=== PATIENT | male | born 1990 | race American Indian/Alaskan Native ===

== ENCOUNTER 2019-10-12 14:15 | Emergency (ER) | payer SELFPAY ==
--- NOTE | 2019-10-12 15:35 | Event Note ---
ED Screening Note Date of service: 10/12/19 Time: 15:27 ED Screening Note: 29 y o male presents disoriented and \auditory hallucination This initial assessment/diagnostic orders/clinical plan/treatment(s) is/are subject to change based on patients health status, clinical progression and re-assessment by fellow clinical providers in the ED. Further treatment and workup at subsequent clinical providers discretion. Patient/guardian urged not to elope from the ED as their condition may be serious if not clinically assessed and managed. Initial orders include: labs.ua. uds
[2019-10-12 15:53] VITALS: BP 155/77
[2019-10-12 16:20] LABS: Basophils % (Auto) 0.4 % (0.0-1.8); Eosinophils % (Auto) 0.1 % (0.0-4.3); Hematocrit 42.6 % (35.5-45.6); Lymphocytes % (Auto) 33.1 % (13.4-35.0); Mean Corpuscular HGB Conc 33 % (32-34); Mean Corpuscular Volume 87 fl (84-94); Monocytes # (Auto) 0.4 K/mm3 (0.0-0.8); Monocytes % (Auto) 7.5 % (0.0-7.3); Platelet Count 200 K/mm3 (140-440); Red Blood Count 4.89 M/mm3 (3.65-5.03); Red Cell Distribution Width 14.2 % (13.2-15.2)
[2019-10-12 16:27] LABS: BUN/Creatinine Ratio 6; Blood Urea Nitrogen 7 mg/dL (9-20); Calcium 9.5 mg/dL (8.4-10.2); Hemolysis Index 6
--- NOTE | 2019-10-12 16:51 | Emergency Department Report ---
ED General Adult HPI - General Chief complaint: Psych Stated complaint: DEPRESSED Time Seen by Provider: 10/12/19 16:12 Source: patient, RN notes reviewed Mode of arrival: Ambulatory Limitations: No Limitations - History of Present Illness Initial comments: This is a 29-year-old gentleman. This patient is not known to this provider previously. Patient presents to the ER with a complaint of anxiety, difficulty sleeping, and occasionally seeing letters which are not there. He denies physical pain. He is not homicidal or suicidal. He does not want to hurt himself or hurt other people. He indicates that he was seen at another hospital, one of the [place] facilities, he believes [facility], was given a medication for anxiety, although he cannot recall the name of the medication. Symptoms are intermittent, painless, do not radiate anywhere, I do not have exacerbating or relieving factors as far as the patient is aware. He makes no complaint of intentional overdose. -: Gradual Improves with: none Worsens with: none - Related Data Allergies Allergy/AdvReac Type Severity Reaction Status Date / Time No Known Allergies Allergy Verified 10/12/19 14:17 ED Review of Systems ROS: Stated complaint: DEPRESSED Other details as noted in HPI Constitutional: see HPI Eyes: as per HPI ENT: as per HPI Respiratory: see HPI Cardiovascular: as per HPI Endocrine: see HPI Gastrointestinal: as per HPI Genitourinary: as per HPI Musculoskeletal: as per HPI Skin: as per HPI Neurological: as per HPI Psychiatric: as per HPI Hematological/Lymphatic: as per HPI ED Past Medical Hx - Past Medical History Previous Medical History?: No - Surgical History Past Surgical History?: No - Social History Smoking Status: Current Every Day Smoker Substance Use Type: None ED Physical Exam - General Limitations: No Limitations General appearance: alert, in no apparent distress - Head Head exam: Present: atraumatic, normocephalic - Eye Eye exam: Present: normal appearance, EOMI, other (visual acuity intact to finger counting and color perception had a close distance). Absent: nystagmus - ENT ENT exam: Present: normal exam, normal orophraynx, mucous membranes moist, normal external ear exam - Neck Neck exam: Present: normal inspection, full ROM. Absent: tenderness, meningismus - Respiratory Respiratory exam: Present: normal lung sounds bilaterally. Absent: respiratory distress - Cardiovascular Cardiovascular Exam: Present: regular rate, normal rhythm, normal heart sounds. Absent: bradycardia, tachycardia, irregular rhythm, systolic murmur, diastolic murmur, rubs, gallop - GI/Abdominal GI/Abdominal exam: Present: soft. Absent: distended, tenderness, guarding, rebound, rigid - Rectal Rectal exam: Present: deferred - Extremities Exam Extremities exam: Present: normal inspection, full ROM, other (2+ pulses noted in the bilateral upper extremities. There is no long bony tenderness. The muscular compartments are soft.) - Back Exam Back exam: Present: normal inspection, full ROM. Absent: tenderness, CVA tenderness (R), CVA tenderness (L), paraspinal tenderness, vertebral tenderness - Neurological Exam Neurological exam: Present: alert, normal gait, other (there is no facial droop. The tongue is midline. The extraocular movements are intact bilaterally. ). Absent: motor sensory deficit - Psychiatric Psychiatric exam: Present: anxious. Absent: homicidal ideation, suicidal ideation - Skin Skin exam: Present: warm, dry, intact, normal color. Absent: rash ED Course Vital Signs 10/12/19 10/12/19 15:25 15:51 Temperature 98.4 F Pulse Rate 84 94 H Respiratory 18 Rate Blood Pressure 151/91 Blood Pressure 155/77 [Right] O2 Sat by Pulse 99 99 Oximetry ED Medical Decision Making - Lab Data Result diagrams: 10/12/19 15:47 10/12/19 15:47 Vital Signs 10/12/19 10/12/19 15:25 15:51 Temperature 98.4 F Pulse Rate 84 94 H Respiratory 18 Rate Blood Pressure 151/91 Blood Pressure 155/77 [Right] O2 Sat by Pulse 99 99 Oximetry Lab Results 10/12/19 10/12/19 10/12/19 Range/Units 15:47 15:47 15:47 WBC 6.0 (4.5-11.0) K/mm3 RBC 4.89 (3.65-5.03) M/mm3 Hgb 14.0 (11.8-15.2) gm/dl Hct 42.6 (35.5-45.6) % MCV 87 (84-94) fl MCH 29 (28-32) pg MCHC 33 (32-34) % RDW 14.2 (13.2-15.2) % Plt Count 200 (140-440) K/mm3 Lymph % (Auto) 33.1 (13.4-35.0) % [place] % (Auto) 7.5 H (0.0-7.3) % Eos % (Auto) 0.1 (0.0-4.3) % Baso % (Auto) 0.4 (0.0-1.8) % Lymph # 2.0 (1.2-5.4) K/mm3 [place] # 0.4 (0.0-0.8) K/mm3 Eos # 0.0 (0.0-0.4) K/mm3 Baso # 0.0 (0.0-0.1) K/mm3 Seg Neutrophils % 58.9 (40.0-70.0) % Seg Neutrophils # 3.5 (1.8-7.7) K/mm3 Sodium 136 L (137-145) mmol/L Potassium 3.7 (3.6-5.0) mmol/L Chloride 100.3 (98-107) mmol/L Carbon Dioxide 19 L (22-30) mmol/L Anion Gap 20 mmol/L BUN 7 L (9-20) mg/dL Creatinine 1.2 (0.8-1.5) mg/dL Estimated GFR > 60 ml/min BUN/Creatinine Ratio 6 % Glucose 103 H (75-100) mg/dL Calcium 9.5 (8.4-10.2) mg/dL Acetaminophen < 5.0 L (10.0-30.0) ug/mL Plasma/Serum Alcohol (0-0.07) % 10/12/19 Range/Units 15:47 WBC (4.5-11.0) K/mm3 RBC (3.65-5.03) M/mm3 Hgb (11.8-15.2) gm/dl Hct (35.5-45.6) % MCV (84-94) fl MCH (28-32) pg MCHC (32-34) % RDW (13.2-15.2) % Plt Count (140-440) K/mm3 Lymph % (Auto) (13.4-35.0) % [place] % (Auto) (0.0-7.3) % Eos % (Auto) (0.0-4.3) % Baso % (Auto) (0.0-1.8) % Lymph # (1.2-5.4) K/mm3 [place] # (0.0-0.8) K/mm3 Eos # (0.0-0.4) K/mm3 Baso # (0.0-0.1) K/mm3 Seg Neutrophils % (40.0-70.0) % Seg Neutrophils # (1.8-7.7) K/mm3 Sodium (137-145) mmol/L Potassium (3.6-5.0) mmol/L Chloride (98-107) mmol/L Carbon Dioxide (22-30) mmol/L Anion Gap mmol/L BUN (9-20) mg/dL Creatinine (0.8-1.5) mg/dL Estimated GFR ml/min BUN/Creatinine Ratio % Glucose (75-100) mg/dL Calcium (8.4-10.2) mg/dL Acetaminophen (10.0-30.0) ug/mL Plasma/Serum Alcohol < 0.01 (0-0.07) % - Medical Decision Making Differential diagnosis, including but not limited to: Dysthymia, anxiety, Gen. medical evaluation Assessment and plan: 29-year-old gentleman who walks with a steady gait, is alert and oriented, clinically sober, with a complaint of depression, having difficulty sleeping, and difficulty processing information. He is not disoriented at this time. He has somewhat of a bizarre affect, but he is pleasant, calm and cooperative, and does not endorse any homicidality or suicidality or any acute medical complaints. The patient does not meet 1013 criteria or involuntary hold criteria. Based off of his exam and articulate complaints, does not appear that the patient has emergent medical condition at this time. We informed patient that he could follow-up with outpatient local psychiatric referral resources and/or facilities. Critical care attestation.: If time is entered above; I have spent that time in minutes in the direct care of this critically ill patient, excluding procedure time. ED Disposition Clinical Impression: History of anxiety, History of sleep disorder Disposition: DC-01 TO HOME OR SELFCARE Is pt being admited?: No Does the pt Need Aspirin: No Condition: Stable Additional Instructions: Patient at this point in time does not appear to have an immediate medical contraindication to outpatient psychiatric evaluation, consultation and further management. Recommend patient follow up with any of the listed psychiatric hospitals or a psychiatrist/therapist within his insurance network. Recommend patient get at least 6-7 hours of good quality on interrupted sleep each night, and avoid distractions prior to going to sleep, such as videogame's, computer, and social media. Recommend patient eat plenty of fiber, vegetables, lean protein, and get vigorous physical exercise 3-5 times a week. Recommend avoidance of alcohol, tobacco, and recreational drugs. Recommend following up with the primary care doctor within the next 4-6 weeks. Return to the emergency room right away with new, worsening or different symptoms, or symptoms not present on the initial emergency room evaluation. [facility] Mental health service in [place], [place] Address: [address], [place] [address] [facility] hospital in the [place], [place] Address: [address] [place] [address] , [place] [address] Hours: [facility] Mental health service in the [place], [place] Address: [address] [place] [id number] Open 24 hours Referrals: [facility] [Outside] - as needed [facility] [Provider Group] - 3-5 Days [facility] [Provider Group] - 3-5 Days
== END 2019-10-12 17:09 | disposition home or self-care (01) ==
LOC: ED 14:15
DX: F41.9 Anxiety disorder, unspecified (principal); G47.9 Sleep disorder, unspecified; F17.200 Nicotine dependence, unspecified, uncomplicated
CPT/HCPCS: 36415; 80048; 80156; 80320; 85025; G0480